=== PATIENT | female | born 1990 | race Caucasian/White ===

== ENCOUNTER 2024-11-02 19:57 | Inpatient (IN) | payer OTHER, SELFPAY ==
[2024-11-02] MEDS: CLEOCIN 50 IV (20:42)
[2024-11-02 20:53] LABS: Hematocrit 39.0 % (37.0-47.0); Hemoglobin 13.6 g/dL (12.0-16.0); Mean Corp Hgb Conc. 34.9 g/dL (33.0-37.0); Mean Corpuscular Volume 87.8 fL (81.0-99.0); Nucleated Red Blood Cells % 0 %; Platelet Count 191 10^3/uL (130-400); Red Cell Dist. Width 12.4 % (11.5-14.5)
[2024-11-02 20:54] VITALS: BP 137/74; BMI 28.6
[2024-11-02] MEDS: FENTANYL/BUPIVACAINE 100 EPIDURAL (21:09)
[2024-11-02] MEDS: SUBLIMAZE 100 MCG EPIDURAL (21:09)
[2024-11-02] MEDS: LR 1000 IV (21:45)
[2024-11-03] MEDS: PITOCIN 30 UNITS/NSS 500 ML IV (02:34)
[2024-11-03] MEDS: PRENATAL PLUS 1 TABLET PO (08:35)
[2024-11-03] MEDS: COLACE 100 MG PO ×2 (08:35→19:50)
[2024-11-03] MEDS: MOTRIN 600 MG PO (16:08)
[2024-11-04] MEDS: MOTRIN 600 MG PO ×2 (02:36→09:35)
[2024-11-04 04:43] LABS: Hematocrit 37.6 % (37.0-47.0); Hemoglobin 13.1 g/dL (12.0-16.0)
[2024-11-04] MEDS: COLACE 100 MG PO (08:04)
[2024-11-04] MEDS: PRENATAL PLUS 1 TABLET PO (08:04)
[2024-11-06 15:38] LABS: Syphilis/T. pallidum Ab Reflex Negative (Negative)
== END 2024-11-04 14:45 | disposition home or self-care (01) | DRG 807 ==
LOC: LDRP 19:57
PROVIDERS: ADMITTING PHYSICIAN Obstetrics & Gynecology; ATTENDING PHYSICIAN Obstetrics & Gynecology
PROC: 4A1HXCZ Monitoring of Products of Conception, Cardiac Rate, External Approach (ICD-10-PCS; 2024-11-02)
PROC: 10E0XZZ Delivery of Products of Conception, External Approach (ICD-10-PCS; 2024-11-03)
PROC: 0HQ9XZZ Repair Perineum Skin, External Approach (ICD-10-PCS; 2024-11-03)
DX: O99.824 Streptococcus B carrier state complicating childbirth (principal); Z37.0 Single live birth; O70.0 First degree perineal laceration during delivery; Z3A.39 39 weeks gestation of pregnancy; Z88.0 Allergy status to penicillin
CPT/HCPCS: 36415; 85014; 85018; 85025; 86780; 86850; 86900; 86901